=== PATIENT | male | born 1975 | race Caucasian/White ===

== ENCOUNTER 2022-11-17 13:50 | Emergency (ER) | payer OTHER, BC ==
[2022-11-19 11:15] LABS: HBSAG SCREEN Negative (Negative)
== END 2022-11-17 16:00 | disposition home or self-care (01) ==
LOC: JP.ED 13:50
DX: S61.230A Puncture wound without foreign body of right index finger without damage to nail, initial encounter (principal); E03.9 Hypothyroidism, unspecified; Z79.899 Other long term (current) drug therapy; W46.0XXA Contact with hypodermic needle, initial encounter; Y92.89 Other specified places as the place of occurrence of the external cause; Y99.0 Civilian activity done for income or pay
CPT/HCPCS: 36415; 86317; 86803; 87340; 87449; 99283

== ENCOUNTER 2023-04-18 06:07 | Emergency (ER) | payer OTHER | END 2023-04-18 08:25 | disposition home or self-care (01) | LOC: JP.ED 06:07 | DX: S40.011A Contusion of right shoulder, initial encounter (principal); S09.90XA Unspecified injury of head, initial encounter; M54.2 Cervicalgia; E03.9 Hypothyroidism, unspecified; Z79.899 Other long term (current) drug therapy; V57.5XXA Driver of pick-up truck or van injured in collision with fixed or stationary object in traffic accident, initial encounter; Y92.410 Unspecified street and highway as the place of occurrence of the external cause | CPT/HCPCS: 70450; 99284 ==